=== PATIENT | male | born 1970 | race Hispanic/Latino ===

== ENCOUNTER 2018-11-25 22:21 | Emergency (ER) | payer SELFPAY ==
[2018-11-25] MEDS ORDERED: SODIUM BICARB 50 MEQ/50ML VIAL IV ONE (22:22)
[2018-11-25] MEDS ORDERED: EPINEPHrine 1 MG/10 ML SYR IV ONE (22:22)
--- NOTE | 2018-11-25 23:21 | ER ---
Nurse's Notes [facility] Name: Jose G Snow Age: 48 yrs Sex: Male : 1970 Arrival Date: 11/25/2018 Time: 22:22 Bed 3 Private MD: Diagnosis: Cardiac arrest Presentation: 11/25 22:18 Method Of Arrival: EMS: [facility] fc 22:18 Acuity: СВЕТЛАНА 1 22:18 Presenting complaint: EMS states: that they were toned for pt having seizure. while on fc their way there they were called to state that police had started CPR. Upon their arrival at 2140 pt was in asystole. Care prior to arrival: Assisted ventilation, Oral intubation, 7.5 ETT 23 at the lip CPR via thumper performed by EMS and is still in progress Medication(s) given: Epi x 3 and Na Bicarb x 1 amp IV initiated. I/O to right lower leg Glucose check: 154. 22:18 Compressions began at 21:40. 22:18 Transition of care: patient was not received from another setting of care. Onset of symptoms was November 25, 2018 at 21:35. Risk Assessment: Do you want to hurt yourself or someone else? Unable to obtain. Initial Sepsis Screen:. Historical: - Allergies: 23:32 No Known Allergies; fc - Home Meds: 23:32 None [Active]; fc - PMHx: 23:32 High Cholesterol; Hypertension; fc - PSHx: 23:32 Heart stents; fc - Immunization history:: Adult Immunizations unknown. - Social history:: Smoking status: unknown Smoking status: Patient/guardian denies using tobacco, Patient/guardian denies using alcohol, street drugs, per family. - Ebola Screening: : Unable to complete screening because patient is unresponsive, patient is intubated. Assessment: 22:19 CPR assessment: unresponsive, no respiratory effort, intubated, Ambu ventilation, lp1 cyanotic. 22:20 General: Behavior is unresponsive. Neuro: Level of Consciousness is unresponsive. lp1 Cardiovascular: Rhythm is asystole. Respiratory: Airway via oral intubation using ambu-bag. 22:20 GI: Abdomen is distended. Derm: Derm: Skin is intact, Skin is dusky. lp1 22:25 Reassessment: ETT repositiioned by resp therapist to 26 at the lip, better ventilation. fc 23:09 Reassessment: Dr. Yee with patient's , Becky Roche, and family. lp1 11/26 00:30 Reassessment: [employer] Surface at bedside with [place] [employer]. lp1 01:25 Reassessment: Transport at bedside for patient to go to [facility] for medical lp1 examination. Vital Signs: 11/25 22:20 Temp 95.6(R); fc 23:37 Weight 108.86 kg; Height 5 ft. 8 in. (172.72 cm); lp1 23:37 Body Mass Index 36.49 (108.86 kg, 172.72 cm) lp1 [place] Coma Score: 22:18 Eye Response: none(1). Verbal Response: none(1). Motor Response: none(1). Total: 3. fc ED Course: 22:18 Patient has correct armband on for positive identification. Bed in low position. fc 22:18 Arm band placed on Patient placed in an exam room, on a stretcher. fc 22:22 Patient arrived in ED. ds1 22:24 Inserted saline lock: 20 gauge in left hand, using aseptic technique. ,using aseptic fc technique. per [employer]. 22:28 Assisted provider with central line placement. Set up central line tray. Triple lumen fc line placed in right femoral. Line placed by Romero EATON unable to obtain access. 22:28 Inserted saline lock: 18 gauge in right antecubital area, using aseptic technique. fc ,using aseptic technique. Per Eva RODRÍGUEZ. 22:32 NGT: inserted 14 Fr. via right nare. verified placement of air over stomach, verified fc return of gastric contents, per Eva RODRÍGUEZ. 22:38 Romero Garcia PA is PHCP. jr8 22:38 Yehuda Yee MD is Attending Physician. jr8 22:45 Triage completed. fc 23:19 Romero Garcia PA is Pronouncing Provider. jr8 23:25 Yenny Renteria, ANNE is Primary Nurse. lp1 Administered Medications: 22:23 Drug: EPINEPHrine 0.1mg/mL 1:10,000 1 mg {Note: to right I/O per Romero.} Route: IVP; fc Site: Other; 23:25 Follow up: Response: No change in condition 1 22:24 Drug: Sodium Bicarbonate 1 amp {Note: per Reginaldo RN.} Route: IVP; Site: left hand; 23:25 Follow up: Response: No adverse reaction lp1 22:26 Drug: EPINEPHrine 0.1mg/mL 1:10,000 1 mg {Note: per Reginaldo Rn.} Route: IVP; Site: left fc hand; 22:29 Follow up: Response: No change in condition lp1 22:29 Drug: EPINEPHrine 0.1mg/mL 1:10,000 1 mg {Note: per Reginaldo RN.} Route: IVP; Site: left hand; 23:32 Follow up: Response: No change in condition 1 22:32 Drug: EPINEPHrine 0.1mg/mL 1:10,000 1 mg {Note: per Reginaldo Rn.} Route: IVP; Site: left hand; 22:35 Follow up: Response: No change in condition [facility] Point of Care Testing: Blood Glucose: 22:19 Blood Glucose: 94 mg/dL; Ranges: Outcome: 23:00 Patient : Time of 22:35 Pronounced by Yehuda Yee MD [facility] 11/26 01:27 Patient : Body released to [facility] Condition: , Becky Roche aware 01:27 Patient left the ED. [facility] Signatures: Margaret Echols, RN RN Adilene Webb 1 Yenny Renteria RN RN [facility] Romero Garcia PA PA jr8 Corrections: (The following items were deleted from the chart) 11/25 22:39 22:38 Assisted provider with central line placement. Set up central line tray. Triple fc lumen line placed in right femoral. Line placed by Romero EATON unable to obtain access 11/26 00:11/25 23:32 General: Behavior is unresponsive. [place] [id number] 11/26 00: 07 23:32 Neuro: Level of Consciousness is unresponsive, [place] [id number] 11/26 00: 07 23:32 Cardiovascular: Rhythm is asystole [place] [id number] 11/26 00: 07 23:32 Respiratory: Airway [place] [id number]
--- NOTE | 2018-11-25 23:21 | EDPHYS ---
Physician Documentation [facility] Name: Jose G Snow Age: 48 yrs Sex: Male : 1970 Arrival Date: 11/25/2018 Time: 22:22 Bed 3 Private MD: ED Physician Yehuda Yee HPI: 11/25 23:09 This 48 yrs old Male presents to ER via EMS with complaints of CPR. jr8 23:09 Preceding the arrest, the patient collapsed, seizure like episode. The arrest occurred jr8 at home. Pre-hospital course: The arrest was witnessed by family. Bystanders at the scene performed CPR. EMS care prior to arrival: initiation of ACLS, peripheral IV, was successfully placed. intubation was successfully performed, using a 7.5 ET tube. oxygen, by BV to assist ventilations. 100% by ET tube. backboard, 8 minutes elapsed prior to ACLS. ACLS details: Initial rhythm was asystole. The presenting rhythm is asystole. Airway: Ambu assist ventilation, oral intubation, Medications given by EMS prior to arrival - Epinephrine IV x 3 doses, Defibrillation was not performed, an external pacer was not used, Response to therapy: continued arrest. The patient has not experienced similar symptoms in the past. It is unknown whether or not the patient has recently seen a physician. Historical: - Allergies: 23:32 No Known Allergies; fc - Home Meds: 23:32 None [Active]; fc - PMHx: 23:32 High Cholesterol; Hypertension; fc - PSHx: 23:32 Heart stents; fc - Immunization history:: Adult Immunizations unknown. - Social history:: Smoking status: unknown Smoking status: Patient/guardian denies using tobacco, Patient/guardian denies using alcohol, street drugs, per family. - Ebola Screening: : Unable to complete screening because patient is unresponsive, patient is intubated. ROS: 23:09 Unable to obtain ROS due to cpr. jr8 Exam: 23:09 Head/Face: Normocephalic, atraumatic. Eyes: Pupils equal, fixed, dilated. Lids and jr8 lashes normal. Conjunctiva and sclera are non-icteric and not injected. Periorbital areas with no swelling, redness, or edema. ENT: Nares patent. No nasal discharge, no septal abnormalities noted. Oropharynx with no redness, swelling, or masses, exudates, or evidence of obstruction, uvula midline. Neck: Trachea midline. Supple, full range of motion Cardiovascular: No cardiac activity present Respiratory: Patient mechanically ventilated at rate of 12 bpm. Equal bilaterally Abdomen/GI: Abdomen soft but distended. No trauma noted Skin: Cool dry to touch without any lesions or rashes Neuro: GCS 3 T Vital Signs: 22:20 Temp 95.6(R); fc 23:37 Weight 108.86 kg; Height 5 ft. 8 in. (172.72 cm); lp1 23:37 Body Mass Index 36.49 (108.86 kg, 172.72 cm) lp1 [place] Coma Score: 22:18 Eye Response: none(1). Verbal Response: none(1). Motor Response: none(1). Total: 3. fc Procedures: 23:09 CPR: Initial patient assessment: unresponsive, cyanotic, pupils fixed \T\ dilated, jr8 intubated, Ambu ventilation, pulses absent w/ compressions, The presenting cardiac rhythm is asystole. respirations assisted with BVM, the patient was intubated prior to arrival, ventilations per thumper, Compressions: began prior to arrival. Meds given: See Meds list. despite ED evaluation and treatment, the patient . Family notified. CPR was stopped at 22:35. Central Line: the site was prepped with Betadine, in sterile fashion, a single lumen catheter was inserted, in the right femoral vein, in 1 attempts. placement was verified, by blood return. MDM: 22:38 Patient medically screened. jr8 23:09 Data reviewed: vital signs, nurses notes. ED course: Patient resuscitated for almost an jr8 hour between ED time and Paramedics on scene that brought patient in. No ROSC could be achieved with adequate CPR, Ventilation, and ACLS procedures. Patient TOD 22:35. Police and family notified . 11/25 22:37 Order name: glucometer results - FOR PT WITH NO ID Administered Medications: 22:23 Drug: EPINEPHrine 0.1mg/mL 1:10,000 1 mg {Note: to right I/O per Romero.} Route: IVP; Site: Other; 23:25 Follow up: Response: No change in condition lp1 22:24 Drug: Sodium Bicarbonate 1 amp {Note: per Reginaldo RN.} Route: IVP; Site: left hand; 23:25 Follow up: Response: No adverse reaction lp1 22:26 Drug: EPINEPHrine 0.1mg/mL 1:10,000 1 mg {Note: per Reginaldo Rn.} Route: IVP; Site: left hand; 22:29 Follow up: Response: No change in condition lp1 22:29 Drug: EPINEPHrine 0.1mg/mL 1:10,000 1 mg {Note: per Reginaldo RN.} Route: IVP; Site: left hand; 23:32 Follow up: Response: No change in condition lp1 22:32 Drug: EPINEPHrine 0.1mg/mL 1:10,000 1 mg {Note: per Reginaldo Rn.} Route: IVP; Site: left hand; 22:35 Follow up: Response: No change in condition lp1 Point of Care Testing: Blood Glucose: 22:19 Blood Glucose: 94 mg/dL; Ranges: Critical Glucose Levels:Adult <50 mg/dl or >400 mg/dl <40 mg/dl or >180 mg/dl Disposition: 23:19 . jr8 11/26 01:34 Co-signature as Attending Physician, Yehuda Yee MD. rn Disposition: Patient pronounced on 11/25/18 22:35 by Romero Garcia. Impression: Cardiac arrest. - Released to Home. Signatures: Dispatcher [employer] EDMS Margaret Echols RN RN Yehuda Yee MD MD rn Pena, Laura, RN RN lp1 Romero Garcia, UMA EATON jr8 Corrections: (The following items were deleted from the chart) 01:27 11/25 23:20 11/25/2018 23:20 Patient pronounced on 11/25/2018 at 22:35 by Romero Garcia. lp1 Impression: Cardiac arrest. Released to Home. jr8
== END 2018-11-26 01:27 | disposition expired ==
LOC: ER 22:21
PROC: 06HY33Z Insertion of Infusion Device into Lower Vein, Percutaneous Approach (ICD-10-PCS; principal; 2018-11-25)
DX: I46.9 Cardiac arrest, cause unspecified (principal); I10 Essential (primary) hypertension; E78.00 Pure hypercholesterolemia, unspecified
CPT/HCPCS: 36415; 82962; 92950; 99291; J0171